=== PATIENT | male | born 1950 | race Caucasian/White ===

== ENCOUNTER 2016-09-21 08:00 | Outpatient (CLI) | payer OTHER | END 2016-09-21 23:59 | disposition home or self-care (01) | DX: Z00.00 Encounter for general adult medical examination without abnormal findings (principal) ==

== ENCOUNTER 2016-10-05 08:51 | Outpatient (CLI) | payer OTHER | END 2016-10-05 08:52 | disposition home or self-care (01) | DX: Z00.00 Encounter for general adult medical examination without abnormal findings (principal); Z12.5 Encounter for screening for malignant neoplasm of prostate ==

== ENCOUNTER 2018-11-03 08:00 | Outpatient (CLI) | payer OTHER ==
[2018-11-03 18:25] LABS: CALCIUM 9.3 mg/dL (8.5-10.3); CARBON DIOXIDE - CO2 28 mmol/L (21-32); CHLORIDE 104 mmol/L (101-111); GLUCOSE 109 mg/dL (70-100); SODIUM 141 mmol/L (135-145)
[2018-11-03 19:33] LABS: ALBUMIN 4.1 g/dL (3.2-5.5); ALBUMIN/GLOBULIN RATIO 1.2 (1.0-2.2); ALKALINE PHOSPHATASE 60 IU/L (42-121); ALT ALANINE AMINOTRANSFERASE 25 IU/L (10-60); AST ASPARTATE AMINOTRANSFERASE 24 IU/L (10-42); BILIRUBIN,TOTAL 0.8 mg/dL (0.2-1.0); BUN - BLOOD UREA NITROGEN 29 mg/dL (6-20); CHOL/HDL RATIO 4.4 (<5.0); CHOLESTEROL 233 mg/dL; CREATININE 0.8 mg/dL (0.6-1.2); GFR - MDRD 97 (>89); HDL CHOLESTEROL 53 mg/dL; LDL CHOLESTEROL,CALCULATED 158 mg/dL; TOTAL PROTEIN 7.4 g/dL (6.7-8.2); VLDL CHOLESTEROL 22 mg/dL
[2018-11-03 20:19] LABS: BASOPHILS % (AUTO) 0.8 %; EOSINOPHILS # (AUTO) 0.2 10^3/uL (0.0-0.7); EOSINOPHILS % (AUTO) 4.5 %; HGB - HEMOGLOBIN 14.9 g/dL (14.0-18.0); LYMPHOCYTES # (AUTO) 1.2 10^3/uL (1.5-3.5); LYMPHOCYTES % (AUTO) 29.4 %; MEAN CORPUSCULAR HEMOGLOBIN 30.7 pg (27.0-31.0); MEAN CORPUSCULAR VOLUME 90.3 fL (80.0-94.0); MEAN PLATELET VOLUME 11.6 fL (7.4-11.4); MONOCYTES # (AUTO) 0.4 10^3/uL (0.0-1.0); MONOCYTES % (AUTO) 10.5 %; NEUTROPHILS # (AUTO) 2.1 10^3/uL (1.5-6.6); NEUTROPHILS % (AUTO) 54.8 %; PLT - PLATELET COUNT 145 10^3/uL (130-450); RED BLOOD COUNT 4.87 10^6/uL (4.70-6.10); RED CELL DISTRIBUTION WIDTH 13.2 % (12.0-15.0); WHITE BLOOD COUNT 3.9 x10^3/uL (4.8-10.8)
== END 2018-11-03 23:59 | disposition home or self-care (01) ==
LOC: LAB.R 08:00
PROVIDERS: ATTEND Nurse Practitioner Family
DX: Z12.5 Encounter for screening for malignant neoplasm of prostate (principal); D64.9 Anemia, unspecified; E78.5 Hyperlipidemia, unspecified
CPT/HCPCS: 36415; 80053; 80061; 83721; 84153; 84443; 85025

== ENCOUNTER 2018-11-06 08:00 | Outpatient (CLI) | payer OTHER | END 2018-11-06 23:59 | disposition home or self-care (01) | LOC: LAB.R 08:00 | PROVIDERS: ATTEND Nurse Practitioner Family | DX: Z12.11 Encounter for screening for malignant neoplasm of colon (principal) | CPT/HCPCS: 82270 ==

== ENCOUNTER 2019-01-19 09:55 | Day surgery (SDC) | payer MEDICARE ==
[2019-01-19] MEDS ORDERED: LACTATED RINGERS 1,000 ML IV ONE ×2 (10:19→10:34)
[2019-01-19] MEDS ORDERED: ONDANSETRON 4 MG/2 ML VIAL IVP ONE (10:29)
[2019-01-19] MEDS ORDERED: MIDAZOLAM 2 MG/2 ML VIAL IVP ONE (10:29)
[2019-01-19] MEDS ORDERED: fentaNYL 250 MCG/5 ML VIAL IVP ONE (10:29)
[2019-01-19 11:23] VITALS: BP 119/80
== END 2019-01-19 09:56 | disposition home or self-care (01) ==
LOC: SDS 09:55
PROVIDERS: ATTEND Surgery
PROC: 0DBK8ZZ Excision of Ascending Colon, Via Natural or Artificial Opening Endoscopic (ICD-10-PCS; principal; 2019-01-19 11:15)
DX: Z12.11 Encounter for screening for malignant neoplasm of colon (principal); K57.30 Diverticulosis of large intestine without perforation or abscess without bleeding; K64.8 Other hemorrhoids
CPT/HCPCS: 45380; J3010; J7120

== ENCOUNTER 2022-05-03 13:50 | Outpatient (CLI) | payer MEDICARE ==
--- NOTE | 2022-05-03 19:52 | XRAY Report ---
PROCEDURE: Ankle 3 View LT INDICATIONS: PAIN OF LEFT ANKLE JOINT TECHNIQUE: 3 views of the ankle were acquired. COMPARISON: None. FINDINGS: Bones: Old fracture involving tip of medial malleolus is seen with well-corticated fragments. No acut e ankle fracture or dislocation. Ankle mortise is normally aligned. No suspicious bony lesions. Wel l-defined plantar and dorsal calcaneal enthesophytes are seen. Soft tissues: Mild ankle soft tissue swelling is seen. No tibiotalar joint effusion. Achilles tendo n appears normal. IMPRESSION: Mild ankle soft tissue swelling. No acute fracture or dislocation. Old injury involving tip of medial malleolus. Ankle mortise is congruent. Calcaneal enthesophytes. Reviewed by: Ranjit Hicks MD on 05/03/2022 7:51 PM PDT Approved by: Ranjit Hicks MD on 05/03/2022 7:51 PM PDT Station ID: [id number]
--- NOTE | 2022-05-03 19:54 | XRAY Report ---
PROCEDURE: Foot 3 View LT INDICATIONS: PAIN OF LEFT ANKLE JOINT TECHNIQUE: 3 views of the foot were acquired. COMPARISON: None FINDINGS: Bones: No fractures or dislocations. Osteoarthritic changes are noted throughout forefoot joints pa rticularly involving second PIP joint with joint space narrowing, subchondral sclerosis. Suggestion o f erosive changes are seen involving second and third PIP joints. Well-defined plantar and dorsal ken caneal enthesophytes are seen. No suspicious bony lesions. Soft tissues: No tibiotalar joint effusion. Achilles tendon appears normal. 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 No fracture or dislocation. Reviewed by: Ranjit Hicks MD on 05/03/2022 7:52 PM PDT Approved by: Ranjit Hicks MD on 05/03/2022 7:52 PM PDT Station ID: [id number]
== END 2022-05-03 13:51 | disposition home or self-care (01) ==
LOC: DI.S 13:50
PROVIDERS: ATTEND Nurse Practitioner Family
DX: M77.32 Calcaneal spur, left foot (principal); R22.42 Localized swelling, mass and lump, left lower limb; M19.072 Primary osteoarthritis, left ankle and foot

== ENCOUNTER 2023-06-10 09:03 | Outpatient (CLI) | payer MEDICARE ==
--- NOTE | 2023-06-10 13:51 | XRAY Report ---
PROCEDURE: Cervical Spine 2 View INDICATIONS: NECK PAIN TECHNIQUE: 4 view(s) of the cervical spine were acquired. COMPARISON: None. FINDINGS: Bones: No fractures or dislocations to the 1 level. Grade 1 anterolisthesis of C4-5. Degenerative di sc disease at C5-6 and C6-7 with disc space narrowing and anterior osteophytes. The lateral masses of C1 appear intact on the odontoid view. No suspicious bony lesions. Soft tissues: No prevertebral soft tissue swelling. IMPRESSION: 1. Degenerative disc disease at C5-6 and C6-7. 2. Grade 1 anterolisthesis of C4-5. Reviewed by: Fercho Fritz on 06/10/2023 1:49 PM PDT Approved by: Fercho Fritz on 06/10/2023 1:49 PM PDT Station ID: [id number]
== END 2023-06-10 09:04 | disposition home or self-care (01) ==
LOC: DI.S 09:03
PROVIDERS: ATTEND Nurse Practitioner Family
DX: M50.322 Other cervical disc degeneration at C5-C6 level (principal); M43.12 Spondylolisthesis, cervical region